=== PATIENT | male | born 1960 | race Caucasian/White ===

== ENCOUNTER 2016-07-14 16:11 | Inpatient (IN) | payer MEDICAID ==
[~2016-07-14] VITALS: Ht 157.5 cm; Wt 84.0 kg
[2016-07-14 17:50] LABS: BASOPHIL % 0 % (0-2); PLATELET COUNT 197 x10^3mcL (130-400); RED CELL DISTRIBUTION WIDTH 13.1 % (11.5-14.5)
[2016-07-14 17:59] LABS: CALCIUM 8.3 mg/dL (8.5-10.1); CARBON DIOXIDE 29.7 mmol/L (21-32); CHLORIDE SERUM 107 mmol/L (98-107); CREATININE SERUM 1.2 mg/dL (0.7-1.3); GFR1 > 60 mL/min; GLUCOSE SERUM 106 mg/dL (74-106); POTASSIUM SERUM 4.6 mmol/L (3.5-5.1); SODIUM SERUM 140 mmol/L (136-145)
[2016-07-14 18:03] LABS: ALKALINE PHOSPHATASE 62 U/L (46-116); ALT/SGPT 25 U/L (16-63); AMYLASE 29 U/L (25-115); AST/SGOT 20 U/L (15-37); BILIRUBIN TOTAL 0.45 mg/dL (0.20-1.00); LIPASE 110 IU/L (73-393); TOTAL PROTEIN, SERUM 6.9 g/dL (6.4-8.2)
[2016-07-14] MEDS ORDERED: FLA500 PO (18:43)
[2016-07-14] MEDS ORDERED: CIPROFLOXACIN500 MG PO (18:43)
[2016-07-14] MEDS ORDERED: ASPIR 8181 MG PO (18:43)
[2016-07-14] MEDS ORDERED: ZESTRIL5 MG PO (18:44)
[2016-07-14 19:15] LABS: UA SPECIFIC GRAVITY >=1.030 (1.005-1.035); microscopic required? YES; urine erythrocyte NEGATIVE (NEGATIVE)
[2016-07-14 20:42] LABS: T3 TOTAL 1.02 ng/mL
[2016-07-14 20:43] LABS: CHOLESTEROL/HDL RATIO 4.6
[2016-07-14 21:10] LABS: FREE T4 1.19 ng/dL (0.76-1.46); FREE THYROXINE INDEX 2.5 ug/dL (1.4-4.5); T4(THYROXINE) 7.1 ug/dL (4.7-13.3)
[2016-07-14 21:22] VITALS: BP 137/82
[2016-07-14 21:34] VITALS: Ht 157.5 cm; Wt 84.0 kg
[2016-07-14 21:59] VITALS: BP 137/80
[2016-07-14 22:44] LABS: AMPHETAMINE QUAL UR NONE DETECTED (NEG <=1000)
[2016-07-15 06:07] LABS: PLATELET COUNT 130 x10^3mcL (130-400); RED CELL DISTRIBUTION WIDTH 13.4 % (11.5-14.5)
[2016-07-15 06:28] LABS: CALCIUM 8.1 mg/dL (8.5-10.1); CHLORIDE SERUM 108 mmol/L (98-107); CREATININE SERUM 1.2 mg/dL (0.7-1.3); GFR1 > 60 mL/min; GLUCOSE SERUM 102 mg/dL (74-106); MAGNESIUM 1.9 mg/dL (1.8-2.4); PHOSPHOROUS 4.2 mg/dL (2.5-4.9); POTASSIUM SERUM 4.4 mmol/L (3.5-5.1); SODIUM SERUM 139 mmol/L (136-145)
[2016-07-15 07:00] VITALS: BP 119/78
[2016-07-15 10:09] VITALS: BP 116/63; BP 120/73
[2016-07-15 10:43] LABS: BAND NEUTROPHIL 10 % (0-10); BASOPHIL 0 % (0-2); MONOCYTE 8 % (0-7); PLATELET MORPHOLOGY PLATELETS NORMAL; SEGMENTED NEUTROPHILS 60 % (37-75)
[2016-07-15 14:33] VITALS: BP 118/74
[2016-07-15 17:47] VITALS: BP 136/84
[2016-07-15 22:34] VITALS: BP 119/75
[2016-07-16 05:45] VITALS: BP 114/75
[2016-07-16 07:10] LABS: CALCIUM 8.2 mg/dL (8.5-10.1); CARBON DIOXIDE 26.9 mmol/L (21-32); CHLORIDE SERUM 109 mmol/L (98-107); CREATININE SERUM 1.1 mg/dL (0.7-1.3); GFR1 > 60 mL/min; GLUCOSE SERUM 97 mg/dL (74-106); MAGNESIUM 2.1 mg/dL (1.8-2.4); PHOSPHOROUS 3.2 mg/dL (2.5-4.9); POTASSIUM SERUM 4.3 mmol/L (3.5-5.1); SODIUM SERUM 141 mmol/L (136-145)
[2016-07-16 07:26] LABS: BASOPHIL % 0.4 % (0-2); PLATELET COUNT 215 x10^3mcL (130-400); RED CELL DISTRIBUTION WIDTH 13.4 % (11.5-14.5)
[2016-07-16 08:22] VITALS: BP 124/81
[2016-07-16 15:03] VITALS: BP 123/75
[2016-07-16] MEDS ORDERED: FLA500 PO (17:20)
[2016-07-16] MEDS ORDERED: LAC PO (17:20)
[2016-07-16 18:07] VITALS: BP 123/75
[2016-07-16] MEDS ORDERED: NATURE'S BLEND F1 MG PO (18:09)
[2016-07-16] MEDS ORDERED: AZULFIDINE500 MG PO (18:09)
[2016-07-16 18:26] VITALS: BP 123/76
== END 2016-07-16 19:32 | disposition home or self-care (01) | DRG 249 ==
LOC: ED 16:11 → DU 19:07
PROVIDERS: Emergency Medicine; Family Medicine; ADMIT Family Medicine
DX: K52.9 Noninfective gastroenteritis and colitis, unspecified (principal); N17.0 Acute kidney failure with tubular necrosis; I10 Essential (primary) hypertension; E66.9 Obesity, unspecified; Z68.33 Body mass index [BMI] 33.0-33.9, adult; Z79.82 Long term (current) use of aspirin
CPT/HCPCS: 45378; 80307; 83880; 84439; J1200; J1610; J1956; J2250; J2270; J2310; J2765; J3010; J3490; J7030; Q0092